=== PATIENT | female | born 1995 | race Two or more races ===

== ENCOUNTER 2018-05-20 15:40 | Emergency (ER) | payer MEDICAID ==
[~2018-05-20] VITALS: Ht 177.8 cm; Wt 66.4 kg
[~2018-05-20 15:40] MED LIST: DOXY1TAB4 PO; HYDR-569 PO; IBUP-1984 PO; ONDA4TAB6 PO
[2018-05-20 15:53] VITALS: BP 127/73
== END 2018-05-20 16:53 | disposition home or self-care (01) ==
LOC: ER 15:41
DX: S30.810A Abrasion of lower back and pelvis, initial encounter (principal); Z98.890 Other specified postprocedural states; Z79.899 Other long term (current) drug therapy; X58.XXXA Exposure to other specified factors, initial encounter; Y93.89 Activity, other specified; Y92.89 Other specified places as the place of occurrence of the external cause; Y99.8 Other external cause status
CPT/HCPCS: 99281

== ENCOUNTER 2019-08-14 17:47 | Emergency (ER) | payer MEDICAID ==
[~2019-08-14] VITALS: Ht 177.8 cm; Wt 70.0 kg
[2019-08-14] MEDS ORDERED: ondansetron/PF 4mg/2ml inj IV ONE (18:05)
[2019-08-14] MEDS ORDERED: potassium CL 20mEq in D5-1/2NS 1,000 ML IV ONE (18:05)
[2019-08-14] MEDS ORDERED: normal saline 1000ML IV soln IVB ONE (18:05)
[2019-08-14] MEDS ORDERED: diphenhydrAMINE 50 mg/ml inj IV ONE (19:05)
[2019-08-14] MEDS ORDERED: metoclopramide 5 mg/ml inj IV ONE (19:05)
[2019-08-14 19:19] LABS: URINE HCG POSITIVE (NEG)
[2019-08-14 19:21] LABS: COLOR,URINE YELLOW (Yellow); GLUCOSE, URINE NEGATIVE (Neg); KETONES,URINE >=80 mg/dl (Neg); LEUKOCYTE ESTERASE ,URINE NEGATIVE (Neg); NITRITES, URINE NEGATIVE (Neg); OCCULT BLOOD,URINE NEGATIVE (Neg); PROTEIN,URINE TRACE mg/dl (Neg)
[2019-08-14 19:25] LABS: UA COLLECTION TYPE CLN CATCH MIDSTREAM
[2019-08-14 19:26] LABS: CLARITY,URINE SLIGHTLY CLOUDY (Clear); RBC,URINE 0-2 /HPF (0-2); WBC,URINE 0-4 /HPF (0-4)
[2019-08-14 19:27] LABS: BACTERIA,URINE 1+ /HPF (Neg); SQUAMOUS EPITHELIAL CELL,UR FEW /LPF (FEW)
[2019-08-14] MEDS ORDERED: PROM25SU46 RC (19:50)
[2019-08-14] MEDS ORDERED: DOXY25TA58 PO (19:50)
[2019-08-14] MEDS ORDERED: PYRI50TA13 PO (19:50)
[2019-08-14] MEDS ORDERED: ONDA8TAB6 PO (19:50)
[2019-08-14 20:25] VITALS: BP 108/62
== END 2019-08-14 20:31 | disposition home or self-care (01) ==
LOC: ER 17:48
DX: O21.9 Vomiting of pregnancy, unspecified (principal); Z98.890 Other specified postprocedural states; Z79.899 Other long term (current) drug therapy; Z3A.01 Less than 8 weeks gestation of pregnancy
CPT/HCPCS: 81001; 81025; 96361; 96374; 96375; 99285; J1200; J2405; J2765; J3480; J7030; 99284

== ENCOUNTER 2019-08-22 20:40 | Emergency (ER) | payer MEDICAID ==
[~2019-08-22] VITALS: Ht 177.8 cm; Wt 70.5 kg
[~2019-08-22 20:40] MED LIST changes: +DOXY25TA58 PO; +ONDA8TAB6 PO; +PROM25SU46 RC; +PYRI50TA13 PO
[2019-08-22] MEDS ORDERED: TAM75C PO (22:46)
[2019-08-22 23:10] VITALS: BP 124/65
== END 2019-08-22 23:04 | disposition home or self-care (01) ==
LOC: ER 20:41
DX: O98.511 Other viral diseases complicating pregnancy, first trimester (principal); B34.9 Viral infection, unspecified; Z3A.08 8 weeks gestation of pregnancy; Z98.890 Other specified postprocedural states; Z79.899 Other long term (current) drug therapy
CPT/HCPCS: 87502; 87503; 99283

== ENCOUNTER 2019-09-27 22:58 | Emergency (ER) | payer MEDICAID ==
[~2019-09-27] VITALS: Ht 177.8 cm; Wt 75.3 kg
[2019-09-28 00:02] LABS: HCG SERUM QL POSITIVE
[2019-09-28 00:07] LABS: CLARITY,URINE CLEAR (Clear); COLOR,URINE YELLOW (Yellow); GLUCOSE, URINE NEGATIVE (Neg); KETONES,URINE NEGATIVE (Neg); LEUKOCYTE ESTERASE ,URINE NEGATIVE (Neg); NITRITES, URINE NEGATIVE (Neg); OCCULT BLOOD,URINE SMALL (Neg); PH,URINE 7.5 (4.8-8.0); PROTEIN,URINE NEGATIVE (Neg)
[2019-09-28 00:12] LABS: UA COLLECTION TYPE CLN CATCH MIDSTREAM
[2019-09-28 00:14] LABS: BACTERIA,URINE NONE SEEN /HPF (Neg); RBC,URINE 0-2 /HPF (0-2); SQUAMOUS EPITHELIAL CELL,UR FEW /LPF (FEW); WBC,URINE 0-4 /HPF (0-4)
[2019-09-28 00:43] LABS: BASOPHILS % (AUTO) 0.3 % (0-1); EOSINOPHILS # (AUTO) 0.1 X10'3 (0-0.9); EOSINOPHILS % (AUTO) 1.1 % (0-6); HEMATOCRIT 30.2 % (35.0-45.0); HEMOGLOBIN 10.6 g/dl (12.0-16.0); LYMPHOCYTES % (AUTO) 29.3 % (21-51); MEAN CORPUSCULAR HEMOGLOBIN 32.1 PG (27.0-31.0); MEAN CORPUSCULAR HGB CONC 35.1 g/dL (33.0-36.5); MEAN CORPUSCULAR VOLUME 91.6 FL (78-98); MEAN PLATELET VOLUME 8.8 FL (7.4-10.4); MONOCYTES # (AUTO) 0.6 X10'3 (0-0.9); MONOCYTES % (AUTO) 8.7 % (2-12); NEUTROPHILS # (AUTO) 4.1 X10'3 (1.8-7.7); NEUTROPHILS % (AUTO) 60.6 % (42-75); PLATELET COUNT 218 X10'3 (140-440); RED BLOOD COUNT 3.29 X10'6 (4.20-5.60); RED CELL DISTRIBUTION WIDTH 13.9 % (11.5-14.5); WHITE BLOOD COUNT 6.8 X10'3 (4.5-11.0)
[2019-09-28 00:48] LABS: ALBUMIN 3.2 G/DL (3.4-5.0); ANION GAP 10 (8-16); BLOOD UREA NITROGEN 14 MG/DL (7-18); BUN/CREATININE RATIO 24.6 (6.6-38.0); CALCIUM 8.4 MG/DL (8.5-10.1); CHLORIDE 103 MMOL/L (99-107); CREATININE 0.57 MG/DL (0.40-0.90); GLUCOSE 81 MG/DL (70-104); POTASSIUM 3.9 MMOL/L (3.5-5.1); SODIUM 135 MMOL/L (135-145); TOTAL CARBON DIOXIDE 21.9 MMOL/L (24-32); eGFR > 90 ML/MIN
[2019-09-28 01:36] VITALS: BP 118/69
== END 2019-09-28 01:38 | disposition home or self-care (01) ==
LOC: ER 22:58
DX: O26.892 Other specified pregnancy related conditions, second trimester (principal); O20.0 Threatened abortion; Z3A.14 14 weeks gestation of pregnancy; Z98.890 Other specified postprocedural states; Z79.899 Other long term (current) drug therapy
CPT/HCPCS: 36415; 76801; 80048; 81001; 81003; 84703; 85025; 86900; 86901; 99284

== ENCOUNTER 2021-01-20 14:28 | Emergency (ER) | payer MEDICAID ==
[~2021-01-20] VITALS: Ht 177.8 cm; Wt 79.5 kg
[~2021-01-20 14:28] MED LIST changes: -PROM25SU46 RC; +PROM25SU9 RC; +PYRI-3 PO; -PYRI50TA13 PO
[2021-01-20 15:11] LABS: BASOPHILS % (AUTO) 0.5 % (0-1); EOSINOPHILS # (AUTO) 0.3 X10'3 (0-0.9); EOSINOPHILS % (AUTO) 3.8 % (0-6); HEMATOCRIT 38.6 % (35.0-45.0); HEMOGLOBIN 12.9 g/dl (12.0-16.0); LYMPHOCYTES # (AUTO) 2.1 X10'3 (1.1-4.8); MEAN CORPUSCULAR HEMOGLOBIN 28.4 PG (27.0-31.0); MEAN CORPUSCULAR HGB CONC 33.5 g/dL (33.0-36.5); MEAN PLATELET VOLUME 8.3 FL (7.4-10.4); MONOCYTES # (AUTO) 0.7 X10'3 (0-0.9); MONOCYTES % (AUTO) 9.6 % (2-12); NEUTROPHILS % (AUTO) 56.1 % (42-75); PLATELET COUNT 282 X10'3 (140-440); RED BLOOD COUNT 4.54 X10'6 (4.20-5.60); RED CELL DISTRIBUTION WIDTH 13.1 % (11.5-14.5); WHITE BLOOD COUNT 7.2 X10'3 (4.5-11.0)
[2021-01-20 15:26] LABS: ALANINE AMINOTRANSFERASE 18 U/L (12-78); ALKALINE PHOSPHATASE 123 IU/L (46-116); ANION GAP 11 (8-16); ASPARTATE AMINO TRANSFERASE 16 U/L (10-37); BILIRUBIN,TOTAL 0.4 MG/DL (0.1-1.0); BLOOD UREA NITROGEN 10 MG/DL (7-18); BUN/CREATININE RATIO 11.8 (6.6-38.0); CALCIUM 8.8 MG/DL (8.5-10.1); CHLORIDE 109 MMOL/L (99-107); CREATININE 0.85 MG/DL (0.40-0.90); GLUCOSE 91 MG/DL (70-104); LIPASE 69 U/L (73-393); POTASSIUM 3.7 MMOL/L (3.5-5.1); SODIUM 144 MMOL/L (135-145); TOTAL CARBON DIOXIDE 23.8 MMOL/L (24-32); TOTAL PROTEIN 8.1 G/DL (6.4-8.2); eGFR 82 ML/MIN
[2021-01-20 15:48] VITALS: BP 125/88
== END 2021-01-20 16:23 | disposition home or self-care (01) ==
LOC: ER 14:29
DX: B34.9 Viral infection, unspecified (principal); Z20.822 Contact with and (suspected) exposure to COVID-19; Z79.899 Other long term (current) drug therapy
CPT/HCPCS: 36415; 80053; 83690; 85025; 87635; 99283; C9803

== ENCOUNTER 2021-02-03 15:06 | Emergency (ER) | payer MEDICAID ==
[~2021-02-03] VITALS: Ht 177.8 cm; Wt 100.5 kg
[2021-02-03 15:29] VITALS: BP 140/100
[2021-02-03] MEDS ORDERED: HYDR-3965 PO (17:16)
== END 2021-02-03 17:47 | disposition home or self-care (01) ==
LOC: ER 15:06
DX: S92.591A Other fracture of right lesser toe(s), initial encounter for closed fracture (principal); Z79.899 Other long term (current) drug therapy; W22.03XA Walked into furniture, initial encounter; Y93.89 Activity, other specified; Y92.89 Other specified places as the place of occurrence of the external cause; Y99.8 Other external cause status
CPT/HCPCS: 73660; 99283

== ENCOUNTER 2022-06-27 21:10 | Emergency (ER) | payer MEDICAID ==
[~2022-06-27] VITALS: Ht 177.8 cm; Wt 101.0 kg
[2022-06-27 22:09] LABS: BASOPHILS % (AUTO) 0.2 % (0-1); EOSINOPHILS # (AUTO) 0.2 X10'3 (0-0.9); EOSINOPHILS % (AUTO) 2.1 % (0-6); HEMATOCRIT 33.9 % (35.0-45.0); HEMOGLOBIN 11.2 g/dl (12.0-16.0); LYMPHOCYTES # (AUTO) 3.2 X10'3 (1.1-4.8); LYMPHOCYTES % (AUTO) 33.6 % (21-51); MEAN CORPUSCULAR HEMOGLOBIN 27.3 PG (27.0-31.0); MEAN CORPUSCULAR VOLUME 82.9 FL (78-98); MEAN PLATELET VOLUME 8.9 FL (7.4-10.4); MONOCYTES # (AUTO) 0.7 X10'3 (0-0.9); MONOCYTES % (AUTO) 7.5 % (2-12); NEUTROPHILS # (AUTO) 5.4 X10'3 (1.8-7.7); NEUTROPHILS % (AUTO) 56.6 % (42-75); PLATELET COUNT 289 X10'3 (140-440); RED BLOOD COUNT 4.08 X10'6 (4.20-5.60); RED CELL DISTRIBUTION WIDTH 14.9 % (11.5-14.5); WHITE BLOOD COUNT 9.5 X10'3 (4.5-11.0)
[2022-06-27 22:14] LABS: CLARITY,URINE SLIGHTLY CLOUDY (Clear); COLOR,URINE YELLOW (Yellow); GLUCOSE, URINE NEGATIVE (Neg); KETONES,URINE NEGATIVE (Neg); LEUKOCYTE ESTERASE ,URINE NEGATIVE (Neg); NITRITES, URINE NEGATIVE (Neg); OCCULT BLOOD,URINE NEGATIVE (Neg); PH,URINE 5.5 (4.8-8.0); PROTEIN,URINE NEGATIVE (Neg); URINE HCG NEGATIVE (NEG); UROBILINOGEN,URINE 0.2 E.U/dL (0.2-1.0)
[2022-06-27 22:16] LABS: UA COLLECTION TYPE CLN CATCH MIDSTREAM
[2022-06-27 22:20] LABS: BACTERIA,URINE 2+ /HPF (Neg); RBC,URINE 0-2 /HPF (0-2); SQUAMOUS EPITHELIAL CELL,UR MODERATE /LPF (FEW)
[2022-06-27 22:21] LABS: MUCUS STRANDS FEW /LPF (Neg)
[2022-06-27 22:24] LABS: ALANINE AMINOTRANSFERASE 17 U/L (12-78); ALBUMIN 4.1 G/DL (3.4-5.0); ALBUMIN/GLOBULIN RATIO 1.1 (1.1-1.5); ALKALINE PHOSPHATASE 111 IU/L (46-116); ANION GAP 10 (8-16); ASPARTATE AMINO TRANSFERASE 15 U/L (10-37); BILIRUBIN,TOTAL 0.3 MG/DL (0.1-1.0); BLOOD UREA NITROGEN 15 MG/DL (7-18); BUN/CREATININE RATIO 19.5 (6.6-38.0); CALCIUM 8.8 MG/DL (8.5-10.1); CHLORIDE 104 MMOL/L (99-107); CREATININE 0.77 MG/DL (0.40-0.90); GLUCOSE 104 MG/DL (70-104); LIPASE 99 U/L (73-393); POTASSIUM 3.7 MMOL/L (3.5-5.1); SODIUM 139 MMOL/L (135-145); TOTAL CARBON DIOXIDE 25.3 MMOL/L (24-32); eGFR > 90 ML/MIN
[2022-06-28] MEDS ORDERED: ondansetron 4mg rapidly disintigrating tab PO ONE (00:35)
[2022-06-28] MEDS ORDERED: mag hydrox/Alum hydrox/simeth 30ml oral suspension PO ONE (00:35)
[2022-06-28] MEDS ORDERED: LIDOcaine Viscous 15ml cup MM ONE ×2 (00:35→01:10)
[2022-06-28] MEDS ORDERED: famotidine 20mg tablet PO ONE (00:35)
[2022-06-28] MEDS ORDERED: ONDA8TAB13 PO (02:01)
[2022-06-28] MEDS ORDERED: FAMO40TA73 PO (02:01)
[2022-06-28 02:19] VITALS: BP 123/94
== END 2022-06-28 02:22 | disposition home or self-care (01) ==
LOC: ER 21:11
DX: R10.84 Generalized abdominal pain (principal); Z79.899 Other long term (current) drug therapy; Z98.890 Other specified postprocedural states
CPT/HCPCS: 36415; 80053; 81001; 81025; 83690; 85025; 87088; 99284